=== PATIENT | female | born 1950 | race Two or more races ===

== ENCOUNTER 2019-01-30 13:00 | Outpatient (CLI) ==
--- NOTE | 2019-01-30 15:09 | DI ---
EXAM: LEFT SHOULDER HISTORY: Shoulder pain FINDINGS: Left shoulder four view. There is mild osteoarthritis of both the glenohumeral and acromi oclavicular joints. There is no joint dislocation or subluxation. No fracture or soft tissue findin g. IMPRESSION: 1. Mild osteoarthritis.
--- NOTE | 2019-01-30 15:47 | DI ---
EXAM: Cervical spine three view HISTORY: Pain COMPARISON: None TECHNIQUE: Three-view cervical spine were performed FINDINGS: C7 partially obscured on the lateral view. C2 partially obscured on the odontoid view. V ertebral bodies normal height. No fracture. No subluxation. Straightening of the normal cervical l ordosis. Multilevel marginal osteophyte formation. Intervertebral disc spaces maintained. Multilev el facet and uncovertebral hypertrophy. Prevertebral soft tissues appear normal. IMPRESSION: 1. Chronic discogenic degenerative disease and facet arthrosis. 2. Straightening of the normal cervical lordosis.
== END 2019-01-30 13:01 | disposition home or self-care (01) ==
LOC: RAD 13:00
PROVIDERS: ATTEND Internal Medicine
DX: M25.512 Pain in left shoulder (principal); M54.2 Cervicalgia